=== PATIENT | female | born 2000 | race African-American/Black ===

== ENCOUNTER 2020-06-08 09:42 | Emergency (ER) | payer BC ==
[~2020-06-08] VITALS: Ht 152.4 cm; Wt 102.5 kg
[2020-06-08] MEDS ORDERED: VENTOLIN HFA 1818 GM INH ×2 (09:52→11:28)
[2020-06-08 10:12] LABS: ABSOLUTE NEUTROPHILS 2.7 thou/uL (1.4-8.2); BASOPHILS 0.3 % (0.0-2.0); EOSINOPHILS 0.5 % (0.0-3.0); HEMATOCRIT 37.6 % (37.0-47.0); HEMOGLOBIN 12.3 gm/dL (12.0-15.0); LYMPHOCYTES 40.5 % (24.0-44.0); MCH 22.8 pg (26.0-34.0); MCHC 32.6 g/dL (28.0-37.0); MCV 69.9 fL (80.0-100.0); PLATELET COUNT 203 thou/uL (150-400); POLYS 49.7 % (36.0-66.0); RBC 5.38 mil/uL (4.20-5.00); RDW 14.7 % (10.5-14.5); WBC 5.4 thou/uL (4.0-11.0)
[2020-06-08 10:30] LABS: BE(vivo) 2.2 mmol/L (-2 to +3); PCO2 VENOUS 33.5 mmHg (41.0-51.0); PO2 VENOUS 73.9 mmHg (35.0-45.0)
[2020-06-08 10:31] LABS: ANION GAP 9 mmol/L (7-16); BUN 9 mg/dL (7-18); CALCIUM 8.7 mg/dL (8.5-10.1); CHLORIDE 105 mmol/L (98-107); CO2 25 mmol/L (21-32); CREATININE 0.8 mg/dL (0.6-1.0); GLUCOSE 93 mg/dL (74-106); POTASSIUM 3.4 mmol/L (3.5-5.1); SODIUM 139 mmol/L (136-145)
[2020-06-08 10:38] LABS: ALBUMIN 3.5 g/dL (3.4-5.0); MAGNESIUM 1.9 mg/dL (1.8-2.4); SGOT 16 U/L (15-37); SGPT 14 U/L (30-65); TOTAL BILIRUBIN 0.3 mg/dL (0.2-1.0); TOTAL PROTEIN 7.5 g/dL (6.4-8.2); TROPONIN-I <0.06 ng/mL (<0.06)
[2020-06-08] MEDS ORDERED: ONDANSETRON ODT8 MG PO (11:28)
[2020-06-08] MEDS ORDERED: NAPROSYN500 MG PO (11:28)
[2020-06-08] MEDS ORDERED: PREDNISONE 20 M20 MG PO (11:28)
[2020-06-08 11:58] LABS: PLATELET ESTIMATE NORMAL
[2020-06-08 12:02] VITALS: BP 127/76
[2020-06-08 12:02] LABS: ANISOCYTOSIS 1+; HYPOCHROMASIA 2+; MICROCYTES 2+
--- NOTE | 2020-06-09 07:42 | EKG ---
[facility] [place] [address] ELECTROCARDIOGRAM REPORT Name: EMMANUELLE CORBIN [id number] Admission: 06/08/20 Attend Phys: Discharge: 06/08/20 Date of : 89 Report #: [id number] THIS REPORT FOR: cc: Lex Tipton MD, David B. MD Lundgren, Craig H. MD [facility] ~ THIS REPORT FOR: //name// 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: [facility] : 2000 Requested By: Torsten French Order Number: [id number] MD: Rigoberto Kaufman Measurements Intervals [place] Rate: 61 P: 8 ND: 183 QRS: 48 QRSD: 86 T: 33 QT: 412 QTc: 415 Interpretive Statements Sinus rhythm No significant abnormality No previous ECG available for comparison Electronically Signed On 06-09-2020 7:42:29 SPOOL FIXER by Rigoberto Kaufman [email or web address] <ELECTRONICALLY SIGNED> By: Rigoberto Kaufman MD, [facility] 06/09/20 0742 D: [id number] Rigoberto Kaufman MD, FACC /EPI
== END 2020-06-08 12:10 | disposition home or self-care (01) ==
LOC: ER 09:42
PROVIDERS: Emergency Medicine
DX: U07.1 COVID-19 (principal); J45.909 Unspecified asthma, uncomplicated; J06.9 Acute upper respiratory infection, unspecified; F41.9 Anxiety disorder, unspecified; R11.2 Nausea with vomiting, unspecified; R19.7 Diarrhea, unspecified; Z79.899 Other long term (current) drug therapy